=== PATIENT | female | born 1970 | race Caucasian/White ===

== ENCOUNTER 2021-08-27 09:04 | Outpatient (CLI) | payer OTHER, SELFPAY ==
--- NOTE | 2021-08-27 09:15 | CRLHL7_ITS ---
For Patients: As a result of the Century Cures Act, medical imaging exams and procedure reports are released immediately into your electronic medical record. You may view this report before your referring provider. If you have questions, please contact your health care provider. BILATERAL MAMMOGRAM WITH COMPUTER-AIDED DETECTION AND TOMOSYNTHESIS TECHNIQUE: CC and MLO views were obtained. These mammographic images have been obtained using full-field digital technique. These mammographic images were interpreted with the benefit of computer-aided detection. Breast Tomosynthesis was used in this interpretation. COMPARISON FILM: 08/26/2020, 08/26/2019, 08/23/2018. FINDINGS: The breasts are heterogeneously dense, which may obscure small masses IMPRESSION: There is no radiographic evidence for malignancy. ASSESSMENT: BI-RADS Category 2: Benign RECOMMENDATION: Routine screening mammogram in 1 year. A lay language report of this examination will be provided to the patient. Roderick Bundy M.D. Diagnostic Radiologist [email or web address] Transcribed: 3:10 p.m. KARL/Dictated by: Roderick Bundy MD @ 08/27/2021 2:45:00 PM (Electronically Signed)
== END 2021-08-27 09:05 | disposition home or self-care (01) ==
LOC: MAMMO 09:05
PROVIDERS: PCP Physician Assistant Medical; Visit Provider Internal Medicine Hematology & Oncology
DX: Z12.31 Encounter for screening mammogram for malignant neoplasm of breast (principal); R92.2 Inconclusive mammogram
CPT/HCPCS: 77063; 77067

== ENCOUNTER 2021-09-29 09:29 | Outpatient (RCR) | payer OTHER, SELFPAY ==
--- NOTE | 2022-03-15 14:39 | ONC.NURNOTE ---
Called pt to review changes in [facility] program and Dr. Canales's transition to [facility], returning Spring 2022. Pt is due for f/u 03/2022 but would like to f/u with Dr. Canales when she returns in May.
== END 2022-03-28 23:59 | disposition home or self-care (01) ==
LOC: CCIC 09:29
PROVIDERS: PCP Physician Assistant Medical; Visit Provider Internal Medicine Hematology & Oncology
DX: D05.12 Intraductal carcinoma in situ of left breast (principal); Z79.810 Long term (current) use of selective estrogen receptor modulators (SERMs)
CPT/HCPCS: 99212; 99214

== ENCOUNTER 2022-02-18 08:06 | Outpatient (CLI) | payer OTHER, SELFPAY ==
--- NOTE | 2022-02-18 08:15 | CRLHL7_ITS ---
For Patients: As a result of the Century Cures Act, medical imaging exams and procedure reports are released immediately into your electronic medical record. You may view this report before your referring provider. If you have questions, please contact your health care provider. 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 Family history of breast cancer in maternal grandmother. INDICATION FOR BREAST MRI: Screening breast MRI in this high-risk woman. COMPARISON STUDIES: MRI breast 02/26/2021. Mammogram 08/27/2021. CONTRAST: 15 mL Dotarem. TECHNIQUE: The patient was positioned prone using a breast coil. Multiple imaging sequences were obtained using 1-1.5 mm thick slices with no gap. The image sequences include T2-weighted STIR in the axial plane, T1-weighted nonfat-saturated gradient echo in the axial plane, pre- and post-contrast T1-weighted FLASH 3D with fat suppression in the axial plane, and T1-weighted FLASH high-resolution 3D with fat suppression in the sagittal plane. Image post-processing was performed on a [employer] workstation. Complex 3D rendering including maximum intensity projections (MIPS) and volumetric renderings were obtained to optimize visualization of the extent of pathology and relationship to the nipple, skin, and chest wall. This aids in determining feasibility of breast conservation surgery. Subtraction, multiplanar reconstruction, mean curve determination, and angiogenesis mapping were also performed. The study was technically adequate. FINDINGS: Breast Density: Heterogeneous fibroglandular tissue. Breast Background Enhancement: Mild. RIGHT Breast/ LEFT Breast: Post treated changes LEFT breast. No suspicious mass or mass enhancement in either breast. Lymph Nodes: No morphology abnormal axillary lymph nodes or internal mammary lymph nodes. Other Findings: Hepatic cysts present. IMPRESSIONS AND RECOMMENDATIONS: No MRI findings for malignancy in either breast. No morphologically abnormal axillary lymph nodes or internal mammary lymph nodes. Would recommend continuing with yearly screening mammography. If screening MRIs are felt to be clinically indicated, recommend that these be offset at six-month intervals with the screening mammograms. BI-RADS: BI-RADS Category 2: Benign Aniyah Eric M.D. Diagnostic/Breast Radiologist [email or web address] Transcribed: 11:16 a.mTalita JR/Dictated by: Aniyah Eric MD @ 02/21/2022 11:06:00 AM (Electronically Signed)
== END 2022-02-18 08:07 | disposition home or self-care (01) ==
LOC: MRI 08:07
PROVIDERS: PCP Family Medicine; Visit Provider Internal Medicine Hematology & Oncology
DX: N60.92 Unspecified benign mammary dysplasia of left breast (principal); D05.12 Intraductal carcinoma in situ of left breast; Z12.31 Encounter for screening mammogram for malignant neoplasm of breast
CPT/HCPCS: 77049; A9575

== ENCOUNTER 2022-06-02 10:51 | Outpatient (RCR) | payer OTHER, SELFPAY | END 2022-11-29 23:59 | disposition home or self-care (01) | LOC: CCIC 10:51 | PROVIDERS: PCP Family Medicine; Visit Provider Internal Medicine Hematology & Oncology | DX: D05.12 Intraductal carcinoma in situ of left breast (principal); Z17.0 Estrogen receptor positive status [ER+]; Z79.810 Long term (current) use of selective estrogen receptor modulators (SERMs); Z51.81 Encounter for therapeutic drug level monitoring; F32.A Depression, unspecified | CPT/HCPCS: 99212; 99214 ==

== ENCOUNTER 2022-09-26 14:28 | Outpatient (CLI) | payer OTHER, SELFPAY ==
--- NOTE | 2022-09-26 14:40 | CRLHL7_ITS ---
For Patients: As a result of the Century Cures Act, medical imaging exams and procedure reports are released immediately into your electronic medical record. You may view this report before your referring provider. If you have questions, please contact your health care provider. BILATERAL SCREENING MAMMOGRAM WITH COMPUTER-AIDED DETECTION AND TOMOSYNTHESIS TECHNIQUE: CC and MLO views were obtained. These mammographic images have been obtained using full-field digital technique. These mammographic images were interpreted with the benefit of computer-aided detection. Breast Tomosynthesis was used in this interpretation. COMPARISON FILM: 08/27/21, 08/26/20, 08/26/19. FINDINGS: The breasts are heterogeneously dense, which may obscure small masses IMPRESSION: There is no radiographic evidence for malignancy. ASSESSMENT: BI-RADS Category 2: Benign RECOMMENDATION: Routine screening mammogram in 1 year. A lay language report of this examination will be provided to the patient. Roderick Bundy M.D. Diagnostic Radiologist [email or web address] KARL/Dictated by: Roderick Bundy MD @ 09/29/2022 11:47:00 AM (Electronically Signed)
== END 2022-09-26 14:29 | disposition home or self-care (01) ==
LOC: MAMMO 14:29
PROVIDERS: PCP Family Medicine; Visit Provider Obstetrics & Gynecology
DX: Z12.31 Encounter for screening mammogram for malignant neoplasm of breast (principal); R92.2 Inconclusive mammogram
CPT/HCPCS: 77063; 77067

== ENCOUNTER 2022-12-12 10:48 | Outpatient (RCR) | payer OTHER, SELFPAY | END 2023-06-10 23:59 | disposition home or self-care (01) | LOC: CCIC 10:48 | PROVIDERS: PCP Family Medicine; Visit Provider Physician Assistant | DX: D05.12 Intraductal carcinoma in situ of left breast (principal); Z17.0 Estrogen receptor positive status [ER+]; Z79.810 Long term (current) use of selective estrogen receptor modulators (SERMs); N60.92 Unspecified benign mammary dysplasia of left breast; F32.A Depression, unspecified | CPT/HCPCS: 99212; 99214 ==

== ENCOUNTER 2023-03-06 12:44 | Outpatient (CLI) | payer OTHER, SELFPAY ==
--- NOTE | 2023-03-06 13:00 | CRLHL7_ITS ---
For Patients: As a result of the Century Cures Act, medical imaging exams and procedure reports are released immediately into your electronic medical record. You may view this report before your referring provider. If you have questions, please contact your health care provider. BILATERAL BREAST MRI WITHOUT AND WITH GADOLINIUM CLINICAL HISTORY: Personal history of LEFT breast ductal carcinoma in situ diagnosed in 2018 and treated with lumpectomy and radiation therapy. No current breast related concerns. INDICATION FOR BREAST MRI: High-risk screening breast MRI. COMPARISON STUDIES: Mammogram 09/26/2022 and 08/27/2021. Breast MRI 02/18/2022. CONTRAST: 11 mL Dotarem. TECHNIQUE: The patient was positioned prone using a breast coil. Multiple imaging sequences were obtained using 1-1.5 mm thick slices with no gap. The image sequences include T2-weighted STIR in the axial plane, T1-weighted nonfat-saturated gradient echo in the axial plane, pre- and post-contrast T1-weighted FLASH 3D with fat suppression in the axial plane, and T1-weighted FLASH high resolution 3D with fat suppression in the sagittal plane. Image post-processing was performed on a [employer] workstation. Complex 3D rendering including maximum intensity projections (MIPS) and volumetric renderings were obtained to optimize visualization of the extent of pathology and relationship to the nipple, skin, and chest wall. This aids in determining feasibility of breast conservation surgery. Subtraction, multiplanar reconstruction, mean curve determination, and angiogenesis mapping were also performed. The study was technically adequate. FINDINGS: Amount of Fibroglandular Tissue: Heterogeneous fibroglandular tissue. Breast Background Enhancement: Mild. RIGHT Breast: There is no suspicious mass or enhancement within the breast. LEFT Breast: There are expected postsurgical changes in the outer breast. No suspicious mass or enhancement within the breast. Lymph Nodes: No abnormal morphology lymph nodes. IMPRESSIONS AND RECOMMENDATIONS: 1. No MRI evidence of malignancy in either breast. 2. Annual screening mammography is recommended. If clinically indicated, continued screening breast MRI may also be performed, staggered at six-month intervals with screening mammography. BI-RADS Category 2: Benign Dictated by Olivia Bond MD @ 03/08/2023 8:58:01 AM jj/Dictated by: Olivia Bond MD @ 03/08/2023 8:58:00 AM (Electronically Signed)
== END 2023-03-06 12:45 | disposition home or self-care (01) ==
LOC: MRI 12:45
PROVIDERS: PCP Family Medicine; Visit Provider Internal Medicine Hematology & Oncology
DX: Z12.39 Encounter for other screening for malignant neoplasm of breast (principal); D05.12 Intraductal carcinoma in situ of left breast; N60.92 Unspecified benign mammary dysplasia of left breast; Z85.3 Personal history of malignant neoplasm of breast
CPT/HCPCS: 77049; A9575

== ENCOUNTER 2023-09-04 14:37 | Outpatient (RCR) | payer BC, SELFPAY | END 2024-03-02 23:59 | disposition home or self-care (01) | LOC: CCIC 14:37 | PROVIDERS: PCP Family Medicine; Visit Provider Internal Medicine Hematology & Oncology | DX: D05.12 Intraductal carcinoma in situ of left breast (principal); Z17.0 Estrogen receptor positive status [ER+]; N60.92 Unspecified benign mammary dysplasia of left breast | CPT/HCPCS: 99213; G0463 ==

== ENCOUNTER 2023-10-02 14:59 | Outpatient (CLI) | payer BC, SELFPAY ==
--- NOTE | 2023-10-02 15:20 | CRLHL7_ITS ---
For Patients: As a result of the Century Cures Act, medical imaging exams and procedure reports are released immediately into your electronic medical record. You may view this report before your referring provider. If you have questions, please contact your health care provider. BILATERAL SCREENING MAMMOGRAM WITH COMPUTER-AIDED DETECTION AND TOMOSYNTHESIS TECHNIQUE: CC and MLO views were obtained. These mammographic images have been obtained using full-field digital technique. These mammographic images were interpreted with the benefit of computer-aided detection. Breast Tomosynthesis was used in this interpretation. COMPARISON FILM: 09/26/22, 08/27/21, 08/26/20. FINDINGS: The breasts are heterogeneously dense, which may obscure small masses. IMPRESSION: There is no radiographic evidence for malignancy. ASSESSMENT: BI-RADS Category 2: Benign RECOMMENDATION: Routine screening mammogram in 1 year. A lay language report of this examination will be provided to the patient. Roderick Bundy M.D. Diagnostic Radiologist [email or web address] SP/Dictated by: Roderick Bundy MD @ 10/03/2023 8:51:00 AM (Electronically Signed)
== END 2023-10-02 15:00 | disposition home or self-care (01) ==
PROVIDERS: PCP Family Medicine; Visit Provider Internal Medicine Hematology & Oncology
DX: Z12.31 Encounter for screening mammogram for malignant neoplasm of breast (principal); R92.2 Inconclusive mammogram
CPT/HCPCS: 77063; 77067

== ENCOUNTER 2024-04-12 08:03 | Outpatient (CLI) | payer BC, SELFPAY | END 2024-04-12 08:04 | disposition home or self-care (01) | PROVIDERS: PCP Family Medicine; Visit Provider Internal Medicine Hematology & Oncology | DX: N60.92 Unspecified benign mammary dysplasia of left breast (principal); Z91.89 Other specified personal risk factors, not elsewhere classified; Z12.39 Encounter for other screening for malignant neoplasm of breast | CPT/HCPCS: 77049; A9575 ==

== ENCOUNTER 2024-10-02 13:47 | Outpatient (CLI) | payer BC, SELFPAY ==
--- NOTE | 2024-10-02 14:00 | CRLHL7_ITS ---
For Patients: As a result of the Century Cures Act, medical imaging exams and procedure reports are released immediately into your electronic medical record. You may view this report before your referring provider. If you have questions, please contact your health care provider. INDICATION: BILATERAL SCREENING MAMMOGRAM, ASYMPTOMATIC 54 Y/O FEMALE COMPARISON: 11/02/2023, 09/26/2022, 08/27/2022 TECHNIQUE: Digital mammogram in CC and MLO projections including computer-aided detection (CAD) and tomosynthesis. BREAST COMPOSITION: The breasts are heterogeneously dense, which may obscure small masses. FINDINGS: No suspicious findings. ASSESSMENT: BI-RADS 2 Benign RECOMMENDATION: Annual screening mammogram. A lay language report of this examination will be provided to the patient. Dictated by: Aniyah Eric MD @ 10/02/2024 19:50:43 (Electronically Signed)
== END 2024-10-02 13:48 | disposition home or self-care (01) ==
LOC: MAMMO 13:48
PROVIDERS: PCP Family Medicine; Visit Provider Family Medicine
DX: Z12.31 Encounter for screening mammogram for malignant neoplasm of breast (principal); R92.333 Mammographic heterogeneous density, bilateral breasts
CPT/HCPCS: 77063; 77067